=== PATIENT | male | born 1975 | race Caucasian/White ===

== ENCOUNTER 2017-06-14 08:31 | Emergency (ER) | payer OTHER ==
[~2017-06-14] VITALS: Ht 175.3 cm; Wt 94.5 kg
[2017-06-14] MEDS ORDERED: normal saline 1000ml 1,000 ML IV ONE (09:06)
[2017-06-14] MEDS ORDERED: ketorolac tromethamine 15mg/ml inj. IV ONE (09:10)
[2017-06-14] MEDS ORDERED: normal saline 1000ML IV soln IVB ONE (09:10)
[2017-06-14 09:33] LABS: BASOPHILS % (AUTO) 0.7 % (0-1); EOSINOPHILS # (AUTO) 0.2 X10'3 (0-0.9); EOSINOPHILS % (AUTO) 3.2 % (0-6); LYMPHOCYTES # (AUTO) 1.2 X10'3 (1.1-4.8); MEAN CORPUSCULAR HEMOGLOBIN 30.1 PG (27.0-31.0); MEAN CORPUSCULAR HGB CONC 34.7 % (33.0-36.5); MEAN CORPUSCULAR VOLUME 86.7 FL (78-98); MEAN PLATELET VOLUME 7.4 FL (7.4-10.4); MONOCYTES # (AUTO) 0.4 X10'3 (0-0.9); MONOCYTES % (AUTO) 5.8 % (2-12); NEUTROPHILS # (AUTO) 4.6 X10'3 (1.8-7.7); NEUTROPHILS % (AUTO) 71.3 % (42-75); PLATELET COUNT 301 X10'3 (140-440); RED BLOOD COUNT 5.31 X10'6 (4.70-6.10); RED CELL DISTRIBUTION WIDTH 13.5 % (11.5-14.5); WHITE BLOOD COUNT 6.4 X10'3 (4.5-11.0)
[2017-06-14 09:43] LABS: PARTIAL THROMBOPLASTIN TIME 30 SECONDS (22-32); PROTHROMBIN TIME 10.5 SECONDS (9.0-12.0)
[2017-06-14 09:50] LABS: ALANINE AMINOTRANSFERASE 48 U/L (12-78); ALBUMIN 4.2 G/DL (3.4-5.0); ALBUMIN/GLOBULIN RATIO 1.3 (1.1-1.5); ALKALINE PHOSPHATASE 70 IU/L (46-116); ANION GAP 9 (8-16); ASPARTATE AMINO TRANSFERASE 19 U/L (10-37); BILIRUBIN,TOTAL 0.7 MG/DL (0.1-1.0); BLOOD UREA NITROGEN 19 MG/DL (7-18); CALCIUM 9.3 MG/DL (8.5-10.1); CHLORIDE 106 MMOL/L (99-107); CREATININE 1.19 MG/DL (0.60-1.10); GLUCOSE 121 MG/DL (70-104); SODIUM 143 MMOL/L (135-145); TOTAL CARBON DIOXIDE 28.1 MMOL/L (24-32); TOTAL PROTEIN 7.5 G/DL (6.4-8.2); eGFR 67 ML/MIN
[2017-06-14 10:05] VITALS: BP 135/81
[2017-06-14] MEDS ORDERED: MIDAZolam 5mg/5ml vial ONE (10:21)
[2017-06-14] MEDS ORDERED: LIDOcaine Viscous 15ml cup ONE (10:21)
[2017-06-14] MEDS ORDERED: fentaNYL/PF 50MCG/1 ML 2ML syringe ONE (10:21)
[2017-06-14 11:02] VITALS: BP 127/85
[2017-06-14 11:12] VITALS: BP 124/79
[2017-06-14 11:22] VITALS: BP 121/78
[2017-06-14 12:17] VITALS: BP 142/53
== END 2017-06-14 12:22 | disposition home or self-care (01) ==
LOC: ER 08:32
DX: T18.128A Food in esophagus causing other injury, initial encounter (principal); Z91.013 Allergy to seafood; Z98.890 Other specified postprocedural states; Y92.9 Unspecified place or not applicable
CPT/HCPCS: 36415; 43235; 43239; 70360; 80053; 85025; 85610; 85730; 96374; 99152; 99285; J1885; J2250; J3010; J7030; A4620; G0500